=== PATIENT | male | born 1965 | race Caucasian/White ===

== ENCOUNTER 2019-01-30 15:24 | Emergency (ER) | payer MEDICAID ==
[~2019-01-30] VITALS: Ht 177.8 cm; Wt 86.2 kg
[2019-01-30] MEDS ORDERED: OLAN10TA3 PO (15:37)
[2019-01-30] MEDS ORDERED: PARO25TA16 PO (15:37)
[2019-01-30 15:53] LABS: BASOPHILS # (AUTO) 0.1 K/uL (0.0-8.0); BASOPHILS % (AUTO) 0.8 % (0.0-2.0); EOSINOPHILS # (AUTO) 0.2 K/uL (0.0-0.7); EOSINOPHILS % (AUTO) 3.2 % (0.0-7.0); LYMPHOCYTES # (AUTO) 1.5 K/uL (20.0-40.0); LYMPHOCYTES % (AUTO) 21.9 % (20.5-51.5); MEAN CORPUSCULAR HEMOGLOBIN 29.3 uug (23.8-33.4); MEAN CORPUSCULAR HGB CONC 33 g/dL (32.5-36.3); MEAN CORPUSCULAR VOLUME 87.7 fL (73.0-96.2); MONOCYTES # (AUTO) 0.3 K/uL (2.0-10.0); MONOCYTES % (AUTO) 5.1 % (0.0-11.0); NEUTROPHILS # (AUTO) 4.7 K/uL (1.8-8.9); PLATELET COUNT (AUTO) 306 K/uL (152-348); RED BLOOD CELL COUNT(AUTO) 4.44 MIL/uL (4.06-5.63); WHITE BLOOD COUNT (AUTO) 6.8 K/uL (3.6-10.2)
[2019-01-30 16:00] LABS: CREATININE 0.9 mg/dL (0.6-1.3); POTASSIUM 3.4 mmol/L (3.5-5.1)
[2019-01-30 16:06] LABS: BILIRUBIN,DIRECT 0.1 mg/dL (0.0-0.2); BILIRUBIN,TOTAL 0.1 mg/dL (0.2-1.0); TOTAL PROTEIN, SERUM 7.7 g/dL (6.4-8.2)
--- NOTE | 2019-01-30 16:15 | NUR ---
Call placed to [facility], for PET evaluation, ETA 45min.
[2019-01-30 17:25] LABS: *AMPHETAMINE, URINE NEGATIVE (NEGATIVE); *BARBITURATE, URINE NEGATIVE (NEGATIVE); *CANNABINOID, URINE POSITIVE (NEGATIVE); *COCCAINE, URINE NEGATIVE (NEGATIVE); *OPIATE, URINE NEGATIVE (NEGATIVE); *PHENCYCLIDINE SCREEN,URINE NEGATIVE (NEGATIVE)
--- NOTE | 2019-01-30 17:38 | NUR ---
Pinky at beside for psych eval.
--- NOTE | 2019-01-30 18:45 | NUR ---
hospital sandwich and juice provided for pt per request.
--- NOTE | 2019-01-30 19:48 | NUR ---
Per David DORAN stated that patient is accepted to [facility], but to wait for call back from en for admission.
--- NOTE | 2019-01-30 20:19 | NUR ---
Spoke to Snehal, she stated to call back in a few to give report.
--- NOTE | 2019-01-30 20:20 | NUR ---
[facility] called, spoke to Maru to set up transportation, ETA [id number], TRIP#[id number]
--- NOTE | 2019-01-30 21:30 | NUR ---
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
--- NOTE | 2019-01-30 21:46 | NUR ---
Patient Tranfers to outside Facility Physician: Dr. Segura Location: [facility]
== END 2019-01-30 21:48 | disposition short-term general hospital (02) ==
LOC: ER 15:25
DX: R45.851 Suicidal ideations (principal); R44.0 Auditory hallucinations; F32.9 Major depressive disorder, single episode, unspecified; F17.290 Nicotine dependence, other tobacco product, uncomplicated; F12.10 Cannabis abuse, uncomplicated; Z59.0 Homelessness; Z79.899 Other long term (current) drug therapy
CPT/HCPCS: 36415; 80048; 80076; 80307; 85025; 99285; 99406; G0480; A4663